=== PATIENT | male | born 1970 | race African-American/Black ===

== ENCOUNTER 2020-06-11 15:58 | Emergency (ER) | payer OTHER ==
[2020-06-11] MEDS ORDERED: Sodium Chloride 0.9% 1,000 ML ONE (16:14)
[2020-06-11 16:50] LABS: ALT (SGPT) 31 U/L (8-55); AST (SGOT) 26 U/L (5-34); Acetaminophen Less than 6.0 mcg/mL (10.0-30.0); Albumin 4.3 g/dL (3.5-5.0); Alcohol Less than 10 mg/dL (Less than 10); Alkaline Phosphatase 116 U/L (40-110); Anion Gap 16 mmol/L (10-20); BUN (Urea Nitrogen) 11 mg/dL (8.9-20.6); Bilirubin, Total 0.3 mg/dL (0.2-1.2); CK (CPK) 346 U/L (30-200); Calc. Creatinine Clearance 0 mL/min (70-130); Calcium 9.9 mg/dL (7.8-10.44); Carbon Dioxide 22 mmol/L (22-29); Chloride 105 mmol/L (98-107); Estimated GFR-MDRD 83; Globulin 3.5 g/dL (2.4-3.5); Glucose 106 mg/dL (70-105); Hemoglobin 15.1 g/dL (14.0-18.0); Mean Corpuscular HGB CONC 31.3 g/dL (32.0-36.0); Mean Corpuscular Hemoglobin 31.9 pg (27.0-31.0); Mean Platelet Volume 9.1 fL (7.4-10.4); Platelet Count 328 thou/uL (130-400); Potassium 4.3 mmol/L (3.5-5.1); Protein, Total 7.8 g/dL (6.0-8.3); RBC Distribution Width 11.6 % (11.5-14.5); Red Blood Cell (RBC) Count 4.75 mill/uL (4.70-6.10); Salicylate Less than 8.0 mg/dL (15.0-30.0); Sodium 139 mmol/L (136-145); White Blood Cell (WBC) Count 7.3 thou/uL (4.8-10.8)
[2020-06-11 17:02] LABS: Bilirubin Negative (Negative); Blood, Urine Negative (Negative); Clarity Clear (Clear); Glucose, Urine (Dipstick) Negative (Negative); Ketone, Urine Negative (Negative); Leukocyte Negative (Negative); Nitrite Negative (Negative); Protein, Urine (Dipstick) Negative (Neg-Trace); Specific Gravity, Urine 1.015 (1.005-1.030); Urobilinogen 0.2 mg/dL (Less than 2)
[2020-06-11 17:03] LABS: Amphetamine Not Detected (NotDetected); Barbiturates Screen Not Detected (NotDetected); Benzodiazepine Screen Detected (NotDetected); Cocaine Metabolite Screen Not Detected (NotDetected); Medtox Control Line Valid? VALID (VALID); Methadone Not Detected (NotDetected); Methamphetamine Not Detected (NotDetected); Opiate Screen Not Detected (NotDetected); Oxycodone Screen Not Detected (NotDetected); Phencyclidine (PCP) Detected (NotDetected); THC/Cannabinoid Screen Not Detected (NotDetected); Tricyclic Screen Not Detected (NotDetected)
[2020-06-11 17:06] LABS: Lymphocytes 45 % (21-51); MDiff Complete? YES; Macrocytosis SLIGHT = 6-15 cells (100X) (0-5/hpf); Monocytes 14 % (0-10); Neutrophil 40 % (42-75); Platelet Morphology Comment Appears Adequate
== END 2020-06-11 17:45 | disposition home or self-care (01) ==
LOC: NAV ERS 15:58
DX: F16.90 Hallucinogen use, unspecified, uncomplicated (principal); E78.5 Hyperlipidemia, unspecified; E78.00 Pure hypercholesterolemia, unspecified; I10 Essential (primary) hypertension; M32.9 Systemic lupus erythematosus, unspecified; F17.210 Nicotine dependence, cigarettes, uncomplicated; Z79.82 Long term (current) use of aspirin; Z79.899 Other long term (current) drug therapy
CPT/HCPCS: 80053; 80306; 80307; 81003; 82140; 82550; 84484; 85025; 93005; 96360; J7050

== ENCOUNTER 2021-01-08 23:09 | Emergency (ER) | payer OTHER ==
[2021-01-08] MEDS ORDERED: Lidocaine 1% w/Epinephrine 1:100K 30 ML VIAL ONE (23:13)
[2021-01-08] MEDS ORDERED: TETANUS, DIPHTHERIA TOX,ADULT (TDVAX) 0.5 ML VIAL IM ONE (23:19)
[2021-01-08] MEDS ORDERED: Boostrix 0.5 ML (Tdap) VIAL ONE (23:20)
[2021-01-08] MEDS ORDERED: Triple Antibiotic Oint 1 GM Packet ONE (23:51)
--- NOTE | 2021-01-08 23:51 | RAD ---
XR Forearm Rt 2 View STANDARD INDICATION: History of right forearm laceration COMPARISON:None. FINDINGS: Bones: No acute fracture or subluxation is evident. Joints: No acute abnormality. Soft tissues: There is a 4 mm radiopaque density seen within the superficial soft tissues of the medi al mid left forearm. IMPRESSION: Radiopaque foreign body within the soft tissues of the medial left mid forearm.
== END 2021-01-09 00:05 | disposition home or self-care (01) ==
LOC: NAV ERS 23:09
DX: S51.811A Laceration without foreign body of right forearm, initial encounter (principal); S41.111A Laceration without foreign body of right upper arm, initial encounter; E78.5 Hyperlipidemia, unspecified; E78.00 Pure hypercholesterolemia, unspecified; I10 Essential (primary) hypertension; F17.210 Nicotine dependence, cigarettes, uncomplicated; Z23 Encounter for immunization; Z79.82 Long term (current) use of aspirin; Z79.899 Other long term (current) drug therapy; W22.8XXA Striking against or struck by other objects, initial encounter
CPT/HCPCS: 12002; 90471; 90714; 90715

== ENCOUNTER 2021-01-09 14:39 | Emergency (ER) | payer OTHER ==
[2021-01-09] MEDS ORDERED: Bacitracin 1 PK ONE (15:27)
== END 2021-01-09 15:48 | disposition home or self-care (01) ==
LOC: NAV ERS 14:39
DX: L76.22 Postprocedural hemorrhage of skin and subcutaneous tissue following other procedure (principal); E78.5 Hyperlipidemia, unspecified; E78.00 Pure hypercholesterolemia, unspecified; I10 Essential (primary) hypertension; F17.210 Nicotine dependence, cigarettes, uncomplicated; Z79.82 Long term (current) use of aspirin; Z79.899 Other long term (current) drug therapy
CPT/HCPCS: 99282

== ENCOUNTER 2021-01-11 10:19 | Emergency (ER) | payer OTHER | END 2021-01-11 10:45 | disposition home or self-care (01) | LOC: NAV ERS 10:19 | DX: S51.811D Laceration without foreign body of right forearm, subsequent encounter (principal); E78.5 Hyperlipidemia, unspecified; E78.00 Pure hypercholesterolemia, unspecified; I10 Essential (primary) hypertension; F17.210 Nicotine dependence, cigarettes, uncomplicated; Z79.82 Long term (current) use of aspirin; Z79.899 Other long term (current) drug therapy | CPT/HCPCS: 99282 ==

== ENCOUNTER 2022-02-22 16:55 | Emergency (ER) | payer OTHER | END 2022-02-22 18:54 | disposition short-term general hospital (02) | LOC: NAV ERS 16:55 | DX: N50.811 Right testicular pain (principal); E78.5 Hyperlipidemia, unspecified; E78.00 Pure hypercholesterolemia, unspecified; I10 Essential (primary) hypertension; M32.9 Systemic lupus erythematosus, unspecified; F17.210 Nicotine dependence, cigarettes, uncomplicated; Z79.82 Long term (current) use of aspirin; Z79.899 Other long term (current) drug therapy | CPT/HCPCS: 99284 ==